=== PATIENT | male | born 1955 | race Caucasian/White ===

== ENCOUNTER 2018-08-01 11:00 | Emergency (ER) | payer BC ==
[2018-08-01 11:51] LABS: BASOPHILS % (AUTO) 0.4 %; EOSINOPHILS # (AUTO) 0.1 10^3/uL (0.0-0.7); EOSINOPHILS % (AUTO) 0.9 %; HGB - HEMOGLOBIN 13.8 g/dL (14.0-18.0); LYMPHOCYTES # (AUTO) 1.1 10^3/uL (1.5-3.5); LYMPHOCYTES % (AUTO) 15.6 %; MEAN CORPUSCULAR HEMOGLOBIN 32.5 pg (27.0-31.0); MEAN CORPUSCULAR HGB CONC 35.2 g/dL (32.0-36.0); MEAN CORPUSCULAR VOLUME 92.3 fL (80.0-94.0); MEAN PLATELET VOLUME 6.8 fL (7.4-11.4); MONOCYTES # (AUTO) 0.3 10^3/uL (0.0-1.0); MONOCYTES % (AUTO) 3.8 %; NEUTROPHILS # (AUTO) 5.4 10^3/uL (1.5-6.6); NEUTROPHILS % (AUTO) 79.3 %; PLT - PLATELET COUNT 214 10^3/uL (130-450); RED BLOOD COUNT 4.24 10^6/uL (4.70-6.10); RED CELL DISTRIBUTION WIDTH 12.8 % (12.0-15.0); WHITE BLOOD COUNT 6.9 x10^3/uL (4.8-10.8)
[2018-08-01 12:06] LABS: ALBUMIN 3.8 g/dL (3.2-5.5); ALBUMIN/GLOBULIN RATIO 1.2 (1.0-2.2); BILIRUBIN,TOTAL 0.7 mg/dL (0.2-1.0); CALCIUM 9.1 mg/dL (8.5-10.3); CREATININE 0.7 mg/dL (0.6-1.2)
[2018-08-01] MEDS ORDERED: MECLIZINE 12.5 MG TABLET PO STA (12:57)
[2018-08-01] MEDS ORDERED: ONDANSETRON ODT 4 MG TABLET TL STA (12:57)
--- NOTE | 2018-08-01 13:08 | ED Physician Documentation ---
History of Present Illness - Stated complaint Stated Complaint: DIZZY/VOMITING - Chief complaint Chief Complaint: Neuro - History obtained from History obtained from: Patient - History of Present Illness Timing: Today Pain level max: 0 Pain level now: 0 - Additonal information Additional information: Patient states he awoke at 04 30 And felt the room spinning around him. Worse with movement and better with rest. No headache. No head injuries. He states he has had nausea and vomiting with this. Has never had this occur to him this long before. Has had moments where he is felt vertigo with the room spinning. No numbness or tingling. No focal weakness. Review of Systems Constitutional: denies: Fever, Chills Throat: denies: Sore throat Cardiac: denies: Chest pain / pressure Respiratory: denies: Cough GI: reports: Vomiting Skin: denies: Rash Musculoskeletal: denies: Neck pain, Back pain Neurologic: denies: Headache PD PAST MEDICAL HISTORY - Past Medical History Past Medical History: Yes Cardiovascular: Hypertension, High cholesterol, Pulmonary embolism - Past Surgical History Past Surgical History: No - Present Medications Home Medications: Ambulatory Orders Medication Instructions Recorded Confirmed Meclizine [Antivert] 25 mg PO Q6H PRN #30 tablet 08/01/18 Ondansetron Odt [Zofran] 4 mg TL Q6H PRN #10 tablet 08/01/18 - Allergies Allergies/Adverse Reactions: Allergies Allergy/AdvReac Type Severity Reaction Status Date / Time Penicillins Allergy Unknown Verified 08/01/18 11:15 niacin AdvReac Unknown Verified 08/01/18 11:15 - Social History Does the pt smoke?: No Smoking Status: Never smoker Does the pt drink ETOH?: Yes Does the pt have substance abuse?: No - Immunizations Immunizations are current?: Yes PD ED PE NORMAL - Vitals Vital signs reviewed: Yes - General General: Alert and oriented X 3, No acute distress - HEENT HEENT: Atraumatic, PERRL, EOMI, Ears normal, Moist mucous membranes, Pharynx benign - Neck Neck: Supple, no meningeal sign - Cardiac Cardiac: RRR, Strong equal pulses - Respiratory Respiratory: No respiratory distress, Clear bilaterally - Abdomen Abdomen: Soft, Non tender, Non distended - Back Back: No spinal TTP - Derm Derm: Warm and dry, No rash - Extremities Extremities: No edema, No calf tenderness / cord - Neuro Neuro: Alert and oriented X 3, 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 +horizontal nystagmus) - Psych Psych: Normal mood, Normal affect Results - Vitals Vitals: Vital Signs - 24 hr 08/01/18 08/01/18 11:03 11:32 Temperature 36 C L Heart Rate 59 L 58 L Respiratory 20 18 Rate Blood Pressure 146/82 H 148/71 H O2 Saturation 97 99 Oxygen O2 Source Room air - Labs Labs: Laboratory Tests 08/01/18 08/01/18 08/01/18 11:45 11:45 11:59 WBC 6.9 RBC 4.24 L Hgb 13.8 L Hct 39.1 L MCV 92.3 MCH 32.5 H MCHC 35.2 RDW 12.8 Plt Count 214 MPV 6.8 L Neut # (Auto) 5.4 Lymph # (Auto) 1.1 L Lynn # (Auto) 0.3 Eos # (Auto) 0.1 Baso # (Auto) 0.0 Absolute Nucleated RBC 0.00 Nucleated RBC % 0.0 Sodium 135 Potassium 3.6 Chloride 100 L Carbon Dioxide 26 Anion Gap 9.0 BUN 12 Creatinine 0.7 Estimated GFR (MDRD) 113 Glucose 131 H POC Whole Bld Glucose 124 H Calcium 9.1 Total Bilirubin 0.7 AST 28 ALT 34 Alkaline Phosphatase 52 Total Protein 7.0 Albumin 3.8 Globulin 3.2 Albumin/Globulin Ratio 1.2 Lipase 31 PD MEDICAL DECISION MAKING - ED course Complexity details: reviewed results, re-evaluated patient, considered differential, d/w patient ED course: 63-year-old male with BPPV. Half somersault maneuver performed and does feel better. Also given meclizine and Zofran. Will place on meclizine for home and follow-up with his doctor for further care. No evidence of tumor, stroke, intracranial hemorrhage. Patient counseled regarding signs and symptoms for which I believe and urgent re-evaluation would be necessary. Patient with good understanding of and agreement to plan and is comfortable going home at this time This document was made in part using voice recognition software. While efforts are made to proofread this document, sound alike and grammatical errors may occur. Departure - Departure Disposition: Home, Self Care Clinical Impression: BPPV (benign paroxysmal positional vertigo) Qualifiers: Laterality: right Qualified Code(s): H81.11 - Benign paroxysmal vertigo, right ear Condition: Good Instructions: ED BPV Vertigo Follow-Up: NOEL PEACOCK MD [Primary Care Provider] - Within 1 week Prescriptions: Meclizine [Antivert] 25 mg PO Q6H PRN #30 tablet PRN Reason: Vertigo Ondansetron Odt [Zofran] 4 mg TL Q6H PRN #10 tablet PRN Reason: Nausea / Vomiting Comments: Use the medications as prescribed. This should improve over the next day or so. You can also try the Jero maneuver or half somersault maneuver at home. Your right ear is affected and there are YouTube videos on how to perform these maneuvers.
[2018-08-01 13:24] VITALS: BP 136/78
== END 2018-08-01 13:24 | disposition home or self-care (01) ==
LOC: ED 11:00
DX: H81.11 Benign paroxysmal vertigo, right ear (principal); I10 Essential (primary) hypertension; E78.00 Pure hypercholesterolemia, unspecified; Z86.711 Personal history of pulmonary embolism
CPT/HCPCS: 36415; 80053; 83690; 85025; 93005; 99283; 99284; A9270; Q0162